=== PATIENT | female | born 1970 | race Caucasian/White ===

== ENCOUNTER → 2017-01-12 | Outpatient (CLI) | payer BC, OTHER ==
[~2017-01-12] MED LIST: ADVIN10/60 INH; ALBUAER2 INH; ALL180 PO; AMOX875T PO; BCPILLS PO; FLUC150T PO; FLUT1INH PO; GFNSR600 PO; GLC/500 PO; GLC500 PO; LCTX PO; LEVO1TAB33 PO; MONT1TAB3 PO; SALI0.6510; SPIR100T PO; TRIA1SPR4 NAE; VNTHFA/IN INH
--- NOTE | 2017-01-12 12:33 | DIAGNOSTIC IMAGING REPORT ---
CHEST 2 VIEWS ROUTINE CLINICAL HISTORY: BRONCHITIS CHEST PRESSURE COMPARISON STUDY: 07/20/2016 FINDINGS: The cardiac and mediastinal contours are normal. There is no evidence of focal pulmonary consolidation. There is no evidence of failure. No pleural effusions are visualized.[ IMPRESSION: No active disease in the chest. Electronically signed by: Benoit Fuchs M.D. 01/12/2017 12:32 PM Dictated Date/Time: 01/12/2017 12:32 PM
== END | disposition home or self-care (01) ==
LOC: C.RADPV 12:05
PROVIDERS: ATTEND Family Medicine
DX: J40 Bronchitis, not specified as acute or chronic (principal)

== ENCOUNTER 2017-01-17 00:10 | Inpatient (IN) | payer BC, OTHER ==
[2017-01-17] VITALS (7 sets, daily range): BP systolic 119–156; BP diastolic 76–93; PULSE 77–92; TEMP 36.6–36.8; O2SAT 95–100; Ht 154.9 cm; Wt 87.0 kg
[~2017-01-17] VITALS: Ht 154.9 cm; Wt 87.0 kg
[~2017-01-17 00:10] MED LIST changes: -ALL180 PO; -AMOX875T PO; -FLUC150T PO; -FLUT1INH PO; -GFNSR600 PO; -GLC/500 PO; -LCTX PO; -MONT1TAB3 PO; -SALI0.6510; -TRIA1SPR4 NAE; -VNTHFA/IN INH
[2017-01-17] MEDS ORDERED: SODIUM CHLORIDE 0.9% 1000ML 1,000 ML IV STA (00:47)
[2017-01-17] MEDS ORDERED: GLC/500 PO (00:48)
[2017-01-17] MEDS ORDERED: MONT1TAB3 PO (00:48)
[2017-01-17] MEDS ORDERED: VNTHFA/IN INH (00:50)
[2017-01-17] MEDS ORDERED: FLUT1INH PO (00:50)
[2017-01-17 00:57] LABS: HEMATOCRIT 42.9 % (37-47); MEAN CELL VOLUME 85.1 fL (80-100); MEAN CORPUSCULAR HEMOGLOBIN 29.8 pg (25-34); MEAN PLATELET VOLUME 10.6 fL (7.4-10.4); PLATELET COUNT 475 K/uL (130-400); RED BLOOD COUNT 5.04 M/uL (4.2-5.4); WHITE BLOOD COUNT 21.35 K/uL (4.8-10.8)
[2017-01-17 01:01] LABS: POINT OF CARE TROPONIN I < 0.030 ng/ml (0-0.045)
[2017-01-17 01:06] LABS: PROTHROMBIN TIME (PATIENT) 10.4 SECONDS (9.0-12.0)
[2017-01-17 01:13] LABS: CALCIUM 9.1 mg/dl (8.5-10.1); CREATININE 1.2 mg/dl (0.60-1.20); MAGNESIUM 1.9 mg/dl (1.8-2.4); POTASSIUM 3.9 mmol/L (3.5-5.1)
[2017-01-17 01:18] LABS: PREG INTERNAL NEGATIVE QC NEG CLEAR BACKGROUND; PREG INTERNAL POSITIVE QC POS CONTROL LINE
[2017-01-17 01:20] LABS: BASO % 0.2 %; BASO ABS # 0.05 K/uL (0-0.2); COMPLETE YES; EOS % 1.1 %; IG% 0.4 %; LYMPH % 28.5 %; LYMPH ABS # 6.09 K/uL (1.2-3.4); MONO % 8.3 %; NEUT % 61.5 %
[2017-01-17 01:21] LABS: URINE APPEARANCE CLEAR (CLEAR); URINE BILIRUBIN NEG (NEG); URINE COLOR YELLOW; URINE NITRITE NEG (NEG); URINE SPECIFIC GRAVITY 1.011 (1.000-1.030); UROBILINOGEN NEG (NEG); ZZUR CULT IF INDIC CLEAN CATCH NO
[2017-01-17 01:24] LABS: ALB/GLOB RATIO 0.8 (0.9-2); THYROID STIMULATING HORMONE 4.56 uIu/ml (0.300-4.500)
[2017-01-17 01:26] LABS: MANUAL MICROSCOPIC REQUIRED? NO; REVIEW REQ? NO
[2017-01-17] MEDS ORDERED: OPTIRAY 320 IV PRN (01:30)
--- NOTE | 2017-01-17 02:36 | EMERGENCY ROOM VISIT NOTE ---
History First contact with patient: 00:32 Chief Complaint: SYNCOPE Stated Complaint: SYNCOPE/FALL Nursing Triage Summary: Patient arrived to ED via ALS transport after having two syncopal episodes at home. Patient experienced a clayton horse when lying down to bed, started to walk to the bathroom and had syncopal episode #1, patient woke and went to get back up, then had second syncopal episode falling from standing position and reports that he thinks the patient was "convulsing". Patient has recent hx of bronchitis with abx treatment. History of Present Illness The patient is a 46 year old female who presents to the Emergency Room via ALS with complaints of 2 syncopal episodes which occurred just prior to arrival. The patient states that she was in bed and had a cramp in her left leg. She states that she stood up to walk to the bathroom to take some potassium and began to get dizzy and lightheaded. She reports that she was told by her that she passed out. He states that she stood up afterward and passed out a second time. He reports that she had some convulsions in her arms at this time. The patient states she has been recently treated for bronchitis. She states that for the past 2-3 weeks, she has had sinus pressure, cough and occasional shortness of breath. She has been on 2 rounds of antibiotics, most recently on Levaquin. She does take control pills but denies any recent long travel. She is not a smoker. She denies any family history of cardiac disease or blood clots. She denies any personal history of cardiac disease or blood clots. She denies any fevers, chest pain, abdominal pain, nausea or vomiting. She rates her overall discomfort a 4/10. She denies any significant complaints at this time. Review of Systems A complete 10 point review of systems was reviewed with the patient with pertinent positives and negatives as per history of present illness. All else were negative. Past Medical/Surgical History Medical Problems: (1) Sinusitis (2) Syncope Social History Smoking Status: Never Smoker Current/Historical Medications Scheduled Control Pills ( Control Pills), 1 TAB PO DAILY Fluticasone Furoate-Vilanterol (Breo Ellipta), 1 INHA PO QAM Levofloxacin (Levaquin), 1 TAB PO DAILY Metformin Hcl (Glucophage), 500 MG PO TID Montelukast Sodium (Singulair), 10 MG PO QPM Spironolactone (Aldactone), 100 MG PO AMPM Scheduled PRN Albuterol Hfa (Ventolin Hfa), 2 PUFFS INH Q6H PRN for SOB/Wheezing Allergies Coded Allergies: Tramadol (Verified Allergy, Severe, GI SYMPTOMS, 01/17/17) Physical Exam Vital Signs Date Time Temp Pulse Resp B/P (MAP) Pulse Ox O2 Delivery O2 Flow Rate FiO2 01/17/17 02:38 148/96 01/17/17 02:37 136/90 01/17/17 02:36 156/94 01/17/17 02:21 176/99 01/17/17 01:31 166/87 01/17/17 01:10 98 20 95 01/17/17 01:01 167/100 01/17/17 00:40 103 18 94 01/17/17 00:31 169/105 01/17/17 00:28 166/115 01/17/17 00:21 97 Room Air 01/17/17 00:17 100 01/17/17 00:17 36.7 101 18 147/97 99 Room Air 01/17/17 00:15 147/97 Physical Exam VITALS: Vitals are noted on the nurse's note and reviewed by myself. Vital signs stable. GENERAL: This is a 46-year-old female, in no acute distress, nondiaphoretic, well-developed well-nourished. SKIN: The skin was without erythema, edema, or bruising. HEAD: Normocephalic atraumatic. EARS: External auditory canals clear, tympanic membranes pearly vasquez without erythema or effusion bilaterally. EYES: Pupils equal round and reactive to light and accommodation. Conjunctivae without injection, sclerae without icterus. Extraocular movements intact. NOSE: Bilateral frontal sinus tenderness. MOUTH: Mucous membranes moist. Tonsils are not enlarged. Pharynx without erythema or exudate. NECK: Supple without nuchal rigidity. No lymphadenopathy. HEART: Regular rate and rhythm without murmurs gallops or rubs. LUNGS: Clear to auscultation bilaterally without wheezes, rales or rhonchi. No retractions or accessory muscle use. NEURO: Patient was alert and oriented to person place and time. Medical Decision & Procedures ER Provider Diagnostic Interpretation: CT HEAD: No evidence of acute intracranial abnormality. CT SINUSES: Paranasal sinus disease involving the maxillary, ethmoid, and sphenoid sinuses with near complete opacification of the right maxillary sinus, air-fluid level in the left maxillary sinus and fluid/debris in the sphenoid sinus. Findings are suspicious for acute sinusitis. Correlate clinically. CTA CHEST: No evidence of pulmonary embolism, thoracic aortic aneurysm or dissection. Focal areas of small calcifications in the bilateral lower lobes, nonspecific, although possibly related to prior infection or inhalation/exposure. Radiologist: Angelita Lara MD Laboratory Results 01/17/17 00:35 Red Blood Count 5.04, Mean Corpuscular Volume 85.1, Mean Corpuscular Hemoglobin 29.8, Mean Corpuscular Hemoglobin Concent 35.0, Mean Platelet Volume 10.6, Neutrophils (%) (Auto) 61.5, Lymphocytes (%) (Auto) 28.5, Monocytes (%) (Auto) 8.3, Eosinophils (%) (Auto) 1.1, Basophils (%) (Auto) 0.2, Neutrophils # (Auto) 13.10, Lymphocytes # (Auto) 6.09, Monocytes # (Auto) 1.78, Eosinophils # (Auto) 0.24, Basophils # (Auto) 0.05 01/17/17 00:35 Test 01/17/17 00:35 01/17/17 00:40 01/17/17 03:13 White Blood Count 21.35 K/uL (4.8-10.8) Red Blood Count 5.04 M/uL (4.2-5.4) Hemoglobin 15.0 g/dL (12.0-16.0) Hematocrit 42.9 % (37-47) Mean Corpuscular Volume 85.1 fL (80-100) Mean Corpuscular Hemoglobin 29.8 pg (25-34) Mean Corpuscular Hemoglobin Concent 35.0 g/dl (32-36) Platelet Count 475 K/uL (130-400) Mean Platelet Volume 10.6 fL (7.4-10.4) Neutrophils (%) (Auto) 61.5 % Lymphocytes (%) (Auto) 28.5 % Monocytes (%) (Auto) 8.3 % Eosinophils (%) (Auto) 1.1 % Basophils (%) (Auto) 0.2 % Neutrophils # (Auto) 13.10 K/uL (1.4-6.5) Lymphocytes # (Auto) 6.09 K/uL (1.2-3.4) Monocytes # (Auto) 1.78 K/uL (0.11-0.59) Eosinophils # (Auto) 0.24 K/uL (0-0.5) Basophils # (Auto) 0.05 K/uL (0-0.2) RDW Standard Deviation 43.1 fL (36.4-46.3) RDW Coefficient of Variation 13.9 % (11.5-14.5) Immature Granulocyte % (Auto) 0.4 % Immature Granulocyte # (Auto) 0.09 K/uL (0.00-0.02) Prothrombin Time 10.4 SECONDS (9.0-12.0) Prothromb Time International Ratio 1.0 (0.9-1.1) Activated Partial Thromboplast Time 25.3 SECONDS (21.0-31.0) Partial Thromboplastin Ratio 1.0 Urine Color YELLOW Urine Appearance CLEAR (CLEAR) Urine pH 5.0 (4.5-7.5) Urine Specific [place] 1.011 (1.000-1.030) Urine Protein NEG (NEG) Urine Glucose (UA) NEG (NEG) Urine Ketones NEG (NEG) Urine Occult Blood NEG (NEG) Urine Nitrite NEG (NEG) Urine Bilirubin NEG (NEG) Urine Urobilinogen NEG (NEG) Urine Leukocyte Esterase NEG (NEG) Anion Gap 11.0 mmol/L (3-11) Est Creatinine Clear Calc Drug Dose 60.1 ml/min Estimated GFR () 63.2 Estimated GFR (Non- 54.5 BUN/Creatinine Ratio 11.0 (10-20) Calcium Level 9.1 mg/dl (8.5-10.1) Magnesium Level 1.9 mg/dl (1.8-2.4) Total Bilirubin 0.4 mg/dl (0.2-1) Aspartate Amino Transf (AST/SGOT) 12 U/L (15-37) Alanine Aminotransferase (ALT/SGPT) 28 U/L (12-78) Alkaline Phosphatase 90 U/L (45-117) Total Protein 8.0 gm/dl (6.4-8.2) Albumin 3.5 gm/dl (3.4-5.0) Globulin 4.5 gm/dl (2.5-4.0) Albumin/Globulin Ratio 0.8 (0.9-2) Thyroid Stimulating Hormone (TSH) 4.560 uIu/ml (0.300-4.500) Human Chorionic Gonadotropin, Qual NEG (NEG) Bedside D-Dimer > 450 ng/mlFEU (0-450) Bedside Troponin I < 0.030 ng/ml (0-0.045) Bedside Lactic Acid Venous 1.48 mmol/L (0.90-1.70) Medications Administered Medications (Trade) Dose Ordered Sig/Javan Route Start Time Stop Time Status Last Admin Dose Admin Sodium Chloride 1,000 ml @ 999 mls/hr Q1H1M STAT IV 01/17/17 00:47 01/17/17 01:47 DC 01/17/17 00:47 999 MLS/HR Piperacillin Sod/ Tazobactam Sod (Zosyn Iv) 4.5 gm NOW STAT IV 01/17/17 03:17 01/17/17 03:19 DC 01/17/17 03:23 4.5 GM ECG Rate (beats per minute): 88 Rhythm: normal sinus Findings: no acute ischemic change, no ectopy Comparison ECG Date: no prior available ED Course The patient was evaluated as above. Labs were drawn and IV access was obtained. Patient was medicated with 1 liter NSS. Patient was reevaluated and states she feels better after receiving fluids. Findings were discussed with the patient. I do feel she needs to be admitted due to failed outpatient therapy. She is agreeable to this. Zosyn was ordered. Case was discussed with the [facility] hospitalist, Dr. Lutz. They agreed to evaluate the patient for admission. Medical Decision Differential diagnosis includes pulmonary embolism, vasovagal syncope, arrhythmia, ACS, dehydration, pneumonia, sinusitis, among others. The patient is a 46-year-old female who presents today complaining of 2 syncopal episodes which occurred tonight. The patient initially stated that she had left leg pain and has been treated for bronchitis as an outpatient, which did raise concern for pulmonary embolism. D-dimer was found to be elevated, however chest CT was negative. Labs did reveal a leukocytosis of 21, 000. The patient was on prednisone recently, but finished this over one week ago. Lactic acid was not significantly elevated. CT scan of the sinuses did show significant sinus disease. The patient has been on both azithromycin and Levaquin as an outpatient, and I do feel she would benefit from IV antibiotics. Blood cultures were drawn and she was given a dose of Zosyn. She will be evaluated by the [facility] hospitalist service in the ED for further evaluation and treatment. The patient's case was reviewed with Dr. Rajput, ED attending physician, who agreed with my assessment and treatment plan. Medication reconciliation: I attest that I have personally reviewed the patient 's current medication list. Blood pressure screening: Patient was found to have an elevated blood pressure and was referred to the hospitalist service for further treatment. Impression Primary Impression: Sinusitis Additional Impressions: Syncope Failure of outpatient treatment Departure Information Referrals Pradeep Silva M.D. (PCP) Patient Instructions [facility] Problem Qualifiers Primary Impression: Sinusitis Sinusitis location: pansinusitis Chronicity: acute Recurrence: non- recurrent Qualified Codes: J01.40 - Acute pansinusitis, unspecified Additional Impressions: Syncope Syncope type: unspecified Qualified Codes: R55 - Syncope and collapse
[2017-01-17] MEDS ORDERED: PIPERACILLIN/TAZOBACTAM 4.5 GM/100ML D5W IV STA (03:17)
[2017-01-17] MEDS ORDERED: ONDANSETRON INJ 2 MG/ML 2 ML VIAL IV PRN (04:00)
[2017-01-17] MEDS ORDERED: MAGNESIUM HYDROXIDE SUSP 30 ML UDC PO PRN (04:00)
[2017-01-17] MEDS ORDERED: ALBUTEROL HFA 8 GM INHALER INH PRN (04:00)
[2017-01-17] MEDS ORDERED: POLYETHYLENE (MIRALAX) 17 GM PACK PO PRN (04:00)
[2017-01-17] MEDS ORDERED: ALUMINUM/MAGNESIUM/SIMETH (MAALOX MAX) 30 ML UDC PO PRN (04:00)
[2017-01-17] MEDS ORDERED: ZOLPIDEM TARTRATE 5 MG TAB PO PRN (04:00)
--- NOTE | 2017-01-17 04:33 | History and Physical ---
History & Physical Date & Time of Service: Jan 17, 2017 at 04:12 Chief Complaint: Syncope/Fall Primary Care Physician: Pradeep Silva M.D. History of Present Illness Source: patient 46 y/o F Hx PCOS, asthma. Pt has had sinusitis for the past 2 weeks and has had a course of Zithromax and a steroid taper followed by 5 days of Levaquin. She does not feel her symptoms have improved despite this. She got out of bed today to get some medications and suffered a syncopal episode with little warning. She does not recall any palpitations, CP or a ZELAYA prior to LOC. Her was helping her get up when she briefly lost consciousness again. She had collapse on the floor and was noted to be shaking her upper extremities. She did not bite her tongue or become incontinent. She did not suffer any head trauma. She nimisha lightheaded when she regained consciousness but does not describe a post-ictal phase. She denies recent fevers or decreased fluid intake. Initial labs in the ER reveal Leukocytosis. A sinus CT shown persistent sphenoid and maxillary sinusitis. 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 Family History Mother with PCOS, DM Social History Smoking Status: Never Smoker Alcohol Use: socially Immunizations History of Influenza Vaccine: No History of Tetanus Vaccine?: Yes Tetanus Immunization Date: May 31, 2005 History of Pneumococcal: No History of Hepatitis B Vaccine: Unknown Multi-Drug Resistant Organisms History of MDRO: No Allergies Coded Allergies: Tramadol (Verified Allergy, Severe, GI SYMPTOMS, 01/17/17) Home Medications Scheduled Control Pills ( Control Pills), 1 TAB PO DAILY Fluticasone Furoate-Vilanterol (Breo Ellipta), 1 INHA PO QAM Levofloxacin (Levaquin), 1 TAB PO DAILY Metformin Hcl (Glucophage), 500 MG PO TID Montelukast Sodium (Singulair), 10 MG PO QPM Spironolactone (Aldactone), 100 MG PO AMPM Scheduled PRN Albuterol Hfa (Ventolin Hfa), 2 PUFFS INH Q6H PRN for SOB/Wheezing Review of Systems Constitutional: No fever, No chills, No sweats Eyes: No worsening of vision ENT: + nasal symptoms, No hearing loss, No unusual epistaxis Respiratory: No cough, No sputum, No wheezing Cardiovascular: No chest pain, No orthopnea, No PND Abdomen: No pain, No nausea, No vomiting Musculoskeletal: No joint pain, No muscle pain Genitourinary - Female: No dysuria, No urinary frequency, No urinary urgency Neurologic: + problem reported (LOC as above), No memory loss, No paralysis, No weakness Psychiatric: No depression symptoms Endocrine: No fatigue Hematologic / Lymphatic: No abnormal bleeding/bruising Integumentary: No rash Allergic / Immunologic: No environmental allergies Physical Exam Vital Signs Date Time Temp Pulse Resp B/P (MAP) Pulse Ox O2 Delivery O2 Flow Rate FiO2 01/17/17 02:38 148/96 01/17/17 02:37 136/90 01/17/17 02:36 156/94 01/17/17 02:21 176/99 01/17/17 01:31 166/87 01/17/17 01:10 98 20 95 01/17/17 01:01 167/100 01/17/17 00:40 103 18 94 01/17/17 00:31 169/105 01/17/17 00:28 166/115 01/17/17 00:21 97 Room Air 01/17/17 00:17 100 01/17/17 00:17 36.7 101 18 147/97 99 Room Air 01/17/17 00:15 147/97 General Appearance: WD/WN, no apparent distress Head: normocephalic, atraumatic Eyes: normal inspection, EOMI ENT: normal ENT inspection, hearing grossly normal, pharynx normal Neck: supple, no JVD Respiratory/Chest: chest non-tender, lungs clear, normal breath sounds Cardiovascular: regular rate, rhythm, no edema, no gallop Abdomen/GI: normal bowel sounds, non tender, soft Back: normal inspection, no CVA tenderness, no muscle spasm Extremities/Musculoskelatal: normal inspection, no calf tenderness, no pedal edema, normal range of motion Neurologic/Psych: steel chipper II-XII nml as tested, no motor/sensory deficits, alert, normal mood/affect, normal reflexes, oriented x 3 Skin: normal color, warm/dry, no rash Diagnostics Laboratory Results Results Past 24 Hours Test 01/17/17 00:35 01/17/17 00:40 01/17/17 03:13 Range/Units White Blood Count 21.35 4.8-10.8 K/uL Red Blood Count 5.04 4.2-5.4 M/uL Hemoglobin 15.0 12.0-16.0 g/dL Hematocrit 42.9 37-47 % Mean Corpuscular Volume 85.1 80-100 fL Mean Corpuscular Hemoglobin 29.8 25-34 pg Mean Corpuscular Hemoglobin Concent 35.0 32-36 g/dl Platelet Count 475 130-400 K/uL Mean Platelet Volume 10.6 7.4-10.4 fL Neutrophils (%) (Auto) 61.5 % Lymphocytes (%) (Auto) 28.5 % Monocytes (%) (Auto) 8.3 % Eosinophils (%) (Auto) 1.1 % Basophils (%) (Auto) 0.2 % Neutrophils # (Auto) 13.10 1.4-6.5 K/uL Lymphocytes # (Auto) 6.09 1.2-3.4 K/uL Monocytes # (Auto) 1.78 0.11-0.59 K/uL Eosinophils # (Auto) 0.24 0-0.5 K/uL Basophils # (Auto) 0.05 0-0.2 K/uL RDW Standard Deviation 43.1 36.4-46.3 fL RDW Coefficient of Variation 13.9 11.5-14.5 % Immature Granulocyte % (Auto) 0.4 % Immature Granulocyte # (Auto) 0.09 0.00-0.02 K/uL Prothrombin Time 10.4 9.0-12.0 SECONDS Prothromb Time International Ratio 1.0 0.9-1.1 Activated Partial Thromboplast Time 25.3 21.0-31.0 SECONDS Partial Thromboplastin Ratio 1.0 Urine Color YELLOW Urine Appearance CLEAR CLEAR Urine pH 5.0 4.5-7.5 Urine Specific [place] 1.011 1.000-1.030 Urine Protein NEG NEG Urine Glucose (UA) NEG NEG Urine Ketones NEG NEG Urine Occult Blood NEG NEG Urine Nitrite NEG NEG Urine Bilirubin NEG NEG Urine Urobilinogen NEG NEG Urine Leukocyte Esterase NEG NEG Sodium Level 135 136-145 mmol/L Potassium Level 3.9 3.5-5.1 mmol/L Chloride Level 99 98-107 mmol/L Carbon Dioxide Level 25 21-32 mmol/L Anion Gap 11.0 3-11 mmol/L Blood Urea Nitrogen 13 7-18 mg/dl Creatinine 1.20 0.60-1.20 mg/dl Est Creatinine Clear Calc Drug Dose 60.1 ml/min Estimated GFR () 63.2 Estimated GFR (Non- 54.5 BUN/Creatinine Ratio 11.0 10-20 Random Glucose 122 70-99 mg/dl Calcium Level 9.1 8.5-10.1 mg/dl Magnesium Level 1.9 1.8-2.4 mg/dl Total Bilirubin 0.4 0.2-1 mg/dl Aspartate Amino Transf (AST/SGOT) 12 15-37 U/L Alanine Aminotransferase (ALT/SGPT) 28 12-78 U/L Alkaline Phosphatase 90 45-117 U/L Total Protein 8.0 6.4-8.2 gm/dl Albumin 3.5 3.4-5.0 gm/dl Globulin 4.5 2.5-4.0 gm/dl Albumin/Globulin Ratio 0.8 0.9-2 Thyroid Stimulating Hormone (TSH) 4.560 0.300-4.500 uIu/ml Human Chorionic Gonadotropin, Qual NEG NEG Bedside D-Dimer > 450 0-450 ng/mlFEU Bedside Troponin I < 0.030 0-0.045 ng/ml Bedside Lactic Acid Venous 1.48 0.90-1.70 mmol/L Microbiology Results 01/17/17 Blood Culture, Received Pending 01/17/17 Blood Culture, Received Pending Diagnostic Radiology CT head: maxillary and sphenoid sinusitis EKG NSR Impression Assessment and Plan 46 y/o F Hx PCOS, asthma. Pt has had sinusitis for the past 2 weeks and has had a course of Zithromax and a steroid taper followed by 5 days of Levaquin. She does not feel her symptoms have improved despite this. She got out of bed today to get some medications and suffered a syncopal episode with little warning. She does not recall any palpitations, CP or a ZELAYA prior to LOC. Her was helping her get up when she briefly lost consciousness again. She had collapse on the floor and was noted to be shaking her upper extremities. She does not describe a post-ictal phase. She denies recent fevers or decreased fluid intake. Initial labs in the ER reveal Leukocytosis. A sinus CT shown persistent sphenoid and maxillary sinusitis. 1) Persistent sinusitis - will obtain MRSA culture and consult ENT. Pt placed on Unasyn in interim. 2) Syncope - we will monitor on telemetry - likely due to orthostasis as it occurred when she got out of bed - possibly vasovagal - no CV risk factors are present. 3) PCOS - treats with control, Aldactone, Metformin - we have held all 3 and will provide IVF overnight 4) Asthma - no current exacerbation - cont home inhalers. Full code - Heparin prophylaxis Total time for this admit including review of labs, imaging, EKG, records - discussion with pt and ER attending - 33 min Level of Care Telemetry Resuscitation Status FULL RESUSCITATION VTE Prophylaxis VTE Risk Assessment Done? Y/N: Yes Risk Level: Low Given or contraindicated: Unfractionated heparin SQ
[2017-01-17] MEDS: HEPARIN SOD 5000 UNIT/0.5 ML CARP SQ SCH ×3 (06:00→21:04)
[2017-01-17] MEDS: AMPICILLIN/SULBACTAM SOD INJ 3,000 MG in SODIUM CHLORIDE 0.9% 100ML 100 ML IV SCH ×3 (06:07→17:32)
[2017-01-17] MEDS: NSS + 20MEQ KCL 1000ML 1,000 ML IV SCH ×2 (06:08→15:21)
--- NOTE | 2017-01-17 06:42 | DIAGNOSTIC IMAGING REPORT ---
HEAD CT NONCONTRAST CT DOSE: HISTORY: Pain. Change in mental status. head pain/pressure, syncope TECHNIQUE: Multiaxial CT images of the head were performed without the use of intravenous contrast. Comparison: None. Findings: Diffuse mucosal thickening of all major sinuses. The calvarium and skull base are intact. The ventricles and sulci are within normal limits. There is no mass, hematoma, midline shift, or acute infarct. Impression: Negative unenhanced CT scan of the brain. Diffuse sinusitis. Electronically signed by: Jame Braun M.D. 01/17/2017 6:40 AM Dictated Date/Time: 01/17/2017 6:39 AM
--- NOTE | 2017-01-17 07:32 | DIAGNOSTIC IMAGING REPORT ---
CT SCAN OF THE PARANASAL SINUSES CLINICAL HISTORY: Sinus pain and pressure. COMPARISON STUDY: CT scan of the brain performed concurrently on 01/17/2017. TECHNIQUE: High-resolution CT scan of the paranasal sinuses is performed. Images are reviewed in the axial, sagittal, and coronal planes. IV contrast was not administered for this examination. FINDINGS: Maxillary antra: Subtotally opacified bilaterally. An air-fluid level is seen on the left. Anterior ethmoid sinuses: Subtotally opacified bilaterally, right greater than left. Posterior ethmoid sinuses: Moderate mucosal thickening seen on the right. Clear on the left. Sphenoid sinuses: There is moderate mucosal thickening within air-fluid level in the right. Trace mucosal thickening is seen in the left. Frontal sinuses: Trace mucosal thickening is seen bilaterally. Ostiomeatal complexes: Occluded bilaterally. Frontoethmoidal and sphenoethmoidal recesses: The left sphenoethmoidal recess is patent. The right skin with lateral recess is almost completely occluded. The frontoethmoidal recesses are significantly narrowed bilaterally secondary to mucosal thickening. Carotid arteries: The carotid arteries are covered and without septal attachments. Ethmoid roofs: There is slightly asymmetric elevation of the right ethmoid roof as compared to the left. Nasal turbinates: Normal in appearance. Nasal septum: There is rightward deviation of the bony nasal septum. Optic nerves: Covered. Orbits: The bony orbits are intact. Orbital contents are normal in appearance. Calvarium: The imaged calvarium is normal in appearance. Mastoid air cells: Well pneumatized. Brain parenchyma: Partially visualized brain parenchyma is within normal limits. IMPRESSION: Maxillary, ethmoid, and sphenoid sinus disease as above. Electronically signed by: Urbano Roldan M.D. 01/17/2017 7:30 AM Dictated Date/Time: 01/17/2017 7:26 AM
--- NOTE | 2017-01-17 07:45 | DIAGNOSTIC IMAGING REPORT ---
CT ANGIOGRAM OF THE CHEST CLINICAL HISTORY: Atypical chest pain. COMPARISON STUDY: Chest x-ray dated 01/12/2017. TECHNIQUE: Following the IV administration of 81 cc of Optiray 320, CT angiogram of the chest was performed from the upper abdomen to the thoracic inlet utilizing the pulmonary embolus protocol. Images are reviewed in the axial, sagittal, and coronal planes. 3-D MIPS images are created and assessed. There was an IV malfunction during the examination. IV contrast was then administered without complication. CT DOSE: 1537.22 mGy.cm FINDINGS: Thyroid: Imaged portions of the thyroid gland are normal in size and attenuation. Thoracic aorta: The thoracic aorta is normal in caliber and demonstrates standard 3-vessel arch anatomy. No dissection is seen. Pulmonary vasculature: The pulmonary trunk is normal in caliber. There are no filling defects identified in main, lobar, or segmental pulmonary branches to suggest pulmonary embolus. Heart: The heart is normal in size and configuration, and without pericardial effusion. Lungs and pleural spaces: Numerous calcific granulomas are present both lung bases. There is no airspace consolidation or pleural effusion. The trachea and central airways are clear. Mediastinum: There is no mediastinal lymphadenopathy. Evonne: Clear. Axillae: There is no axillary lymphadenopathy. Upper abdomen: Partially visualized upper abdominal viscera is within normal limits. Skeletal structures: No lytic or blastic bony lesions are seen. IMPRESSION: 1. There is no evidence of pulmonary embolus in the main, lobar, or segmental pulmonary arteries. 2. There is no airspace consolidation or pleural effusion. Electronically signed by: Urbano Roldan M.D. 01/17/2017 7:44 AM Dictated Date/Time: 01/17/2017 7:41 AM
[2017-01-17] MEDS: METFORMIN HCL 500 MG TAB PO SCH ×3 (07:53→17:32)
[2017-01-17] MEDS ORDERED: NURSING DECISION MEDICATION ORDER SCH (08:00)
[2017-01-17] MEDS ORDERED: SODIUM CHLORIDE 0.65% NA SOLN 45 ML (OCEAN) PRN ×2 (08:15)
--- NOTE | 2017-01-17 08:21 | ENT CONSULTATION ---
DATE OF CONSULTATION: 01/17/2017 DIAGNOSIS: Acute sinusitis. HISTORY OF PRESENT ILLNESS: A 46-year-old lady with asthma and sinusitis for 2 weeks, treated with Zithromax, Levaquin and steroids with continuing increase in facial pain, but the main reason she is being admitted is for evaluation for loss of consciousness. PAST MEDICAL HISTORY: Positive for asthma, and PCOS. SOCIAL HISTORY: Nonsmoker. ALLERGIES: TO TRAMADOL. MEDICATIONS: Metformin, Aldactone and Levaquin. REVIEW OF SYSTEMS: Otherwise, negative. PHYSICAL EXAMINATION: GENERAL: WNWD, female, in no acute distress. She states that her facial pain has diminished with the IV Unasyn. HEAD: Normocephalic. EYES: Normal. EARS: Tympanic membranes intact. NOSE: Nasal passages show swollen turbinates. THROAT: Oropharynx normal. NECK: Supple, no adenopathy. IMAGING DATA: The CT scan which were reviewed showed opacified maxillary and ethmoid and sphenoid sinuses. IMPRESSION: Acute sinusitis, responding to Unasyn. RECOMMENDATIONS: The patient will be started on saline nose spray. She is improving on IV antibiotics and does not need any surgical intervention unless the facial pain becomes worse again. I can follow her in my office as needed.
[2017-01-17] MEDS: TRIAMCINOLONE ACET NASAL SPRAY 10.8ML BTL NAE SCH (09:38)
[2017-01-17] MEDS: FEXOFENADINE HCL 180 MG TAB PO SCH (09:38)
[2017-01-17] MEDS: GUAIFENESIN 600 MG TABCR PO SCH ×2 (09:38→21:04)
[2017-01-17] MEDS: ACETAMINOPHEN 325 MG TAB PO PRN (15:23)
[2017-01-17] MEDS ORDERED: MONTELUKAST SOD 10 MG TAB PO SCH (21:00)
[2017-01-17] MEDS: LACTOBACILLUS ACIDOPHILUS (FLORANEX) TAB PO SCH (21:03)
--- NOTE | 2017-01-17 21:11 | Progress Note ---
Progress Note Date of Service Jan 17, 2017. Progress Note 2100 - time S: Pt still with facial pain/headache but overall feels somewhat better. Mild cough but no wheezing. No fever. O: VSS, afebrile gen- nad face- left maxillary area visibly swollen/tender heart- RRR lungs- CTA b/l abd- soft, NT, ND ext- no edema CT head & sinuses - reviewed osteomeatal complexes obstructed b/l b/l sinusitis in multiple areas A/P: 1. acute sinusitis - unresponsive to z-pack and levaquin as outpatient. Agree w/ unasyn; hopefully transition to course of po augmentin tomorrow. Add mucinex, meredith, nasal saline spray, and nasacort. Appreciate ENT eval. Could consider repeat prednisone course if necessary. 2. asthma - w/o exacerbation. 3. FEN - cont fluids, can stop such in am. Repeat labs oma. Damion MITCHELL MD
[2017-01-18] MEDS: AMPICILLIN/SULBACTAM SOD INJ 3,000 MG in SODIUM CHLORIDE 0.9% 100ML 100 ML IV SCH ×2 (00:11→06:01)
[2017-01-18] MEDS: NSS + 20MEQ KCL 1000ML 1,000 ML IV SCH (01:43)
[2017-01-18 04:00] VITALS: BP 125/80; PULSE 62; TEMP 36.6; O2SAT 96
[2017-01-18] MEDS: HEPARIN SOD 5000 UNIT/0.5 ML CARP SQ SCH (06:00)
[2017-01-18] MEDS: ACETAMINOPHEN 325 MG TAB PO PRN (06:07)
[2017-01-18 07:13] VITALS: BP 139/92; PULSE 77; TEMP 36.5; O2SAT 98
[2017-01-18] MEDS: METFORMIN HCL 500 MG TAB PO SCH (07:48)
[2017-01-18] MEDS: LACTOBACILLUS ACIDOPHILUS (FLORANEX) TAB PO SCH (07:48)
[2017-01-18] MEDS: TRIAMCINOLONE ACET NASAL SPRAY 10.8ML BTL NAE SCH (07:49)
[2017-01-18] MEDS: FEXOFENADINE HCL 180 MG TAB PO SCH (07:49)
[2017-01-18] MEDS: GUAIFENESIN 600 MG TABCR PO SCH (07:49)
[2017-01-18] MEDS ORDERED: FLUTICASONE FUROATE-VILANTEROL 30 PUFFS/INHALER INH INH SCH (09:00)
[2017-01-18 09:18] LABS: HEMATOCRIT 41.6 % (37-47); MEAN CELL VOLUME 87.9 fL (80-100); MEAN CORPUSCULAR HEMOGLOBIN 27.9 pg (25-34); MEAN CORPUSCULAR HGB CONC 31.7 g/dl (32-36); MEAN PLATELET VOLUME 10.3 fL (7.4-10.4); PLATELET COUNT 441 K/uL (130-400); RED BLOOD COUNT 4.73 M/uL (4.2-5.4); WHITE BLOOD COUNT 12.24 K/uL (4.8-10.8)
[2017-01-18 09:58] LABS: BUN/CREATININE RATIO 9.8 (10-20); CREATININE 0.93 mg/dl (0.60-1.20); POTASSIUM 3.8 mmol/L (3.5-5.1)
[2017-01-18] MEDS ORDERED: TRIA1SPR4 NAE (10:03)
[2017-01-18] MEDS ORDERED: GFNSR600 PO (10:03)
[2017-01-18] MEDS ORDERED: SALI0.6510 (10:03)
[2017-01-18] MEDS ORDERED: LCTX PO (10:03)
[2017-01-18] MEDS ORDERED: ALL180 PO (10:03)
[2017-01-18] MEDS ORDERED: AMOX875T PO (10:03)
--- NOTE | 2017-01-18 10:19 | Discharge Instructions ---
Discharge Instructions Date of Service Jan 18, 2017. Admission Reason for Admission: Sinus Infection; Passing out Spell Discharge Discharge Diagnosis / Problem: 1. sinus infection - improving. 2. passing out spell - likely vasovagal. Discharge Goals Goal(s): Learn about illness, Diagnostic testing, Therapeutic intervention Activity Recommendations Activity Limitations: resume your previous activity (as tolerated ) . Instructions / Follow-Up Instructions / Follow-Up From Dr. Gilliland - 1. Sinus infection - * please start augmentin 875mg twice daily for 12 more days. Start this TONIGHT. Take with food to minimize stomach upset. Prescription sent to [facility]. * augmentin can cause diarrhea. Please take lactinex (probiotics) three times a day for the next 12 days to help prevent diarrhea. Prescription sent to [facility]. * augmentin can also render your control pills ineffective. Please use a second form of control for the next month. 2. Sinus symptoms - * you may use some or all of the following to help with your sinus symptoms - * "Netti Pot" or the "Netti bottle" or, more simply, a nasal saline spray * meredith (fexofenadine) 180mg once daily * nasacort nasal spray - 2 sprays each nostril once daily * mucinex 600-1200mg up to twice daily; this helps cough as well as nasal/ sinus congestion * all 4 of these products can be found [id number] * you may want to consider staying on the meredith and nasacort for the summer if you have underlying allergies 3. Your episode of passing out was likely a "vasovagal" episode. This is the most common cause of fainting. You were likely mildly dehydrated in the setting of your severe sinus infection. Even mild dehydration can precipitate a vasovagal episode. Your heart monitoring was normal while here. 4. Drink plenty of fluids over the next week. 5. Return to [facility] if: * you develop fever over 100.5 degrees * you have worsening headache, ear pain, etc * you have worsening cough or shortness of breath from your asthma * you develop severe diarrhea, especially if mixed with mucous or blood 6. Follow-up - * please see Dr. Lord early this coming week * you can see Dr. Montanez, ENT, on an as needed basis * see Dr. Neumann as scheduled 7. If you develop symptoms/signs of a vaginal yeast infection you take take diflucan 150mg by mouth for 1 dose. Prescription provided. Current Hospital Diet Patient's current hospital diet: Regular Diet Discharge Diet Recommended Diet: Regular Diet Procedures Procedures Performed: 1. CAT scan of lungs - normal; no pneumonia or blood clots. 2. CAT scan of head - normal except for sinus infection. 3. CAT scan of sinuses - multiple sinuses with infection. Pending Studies Studies pending at discharge: no Medical Emergencies . Who to Call and When: Medical Emergencies: If at any time you feel your situation is an emergency, please call 911 immediately. . Non-Emergent Contact Non-Emergency issues call your: Primary Care Provider Call Non-Emergent contact if: temperature is above 100.5, your pain is not controlled, your pain is worsening, you have any medication questions . . "Provider Documentation" section prepared by Jeet Gilliland. . VTE Core Measure Inpt VTE Proph given/why not?: Unfractionated heparin SQ
[2017-01-18] MEDS ORDERED: FLUC150T PO (10:20)
[2017-01-18 10:24] VITALS: BP 139/92; PULSE 77; TEMP 36.5; O2SAT 98
[2017-01-18 11:00] LABS: BASO ABS # 0.11 K/uL (0-0.2); BASOPHIL % 0.9 %; COMPLETE YES; EOSINOPHIL % 0.9 %; LYMPH ABS # 5.53 K/uL (1.2-3.4); LYMPHOCYTE % 45.2 %; NEUTROPHILS % 47.8 %
--- NOTE | 2017-01-23 22:57 | Discharge Summary ---
Discharge Summary Date of Service Jan 23, 2017. Discharge Summary Admission Date: Jan 17, 2017 at 04:06 Discharge Date: Jan 18, 2017 Discharge Disposition: Home Principal Diagnosis: syncope, likely vasovagal in etiology Problems/Secondary Diagnoses: 1. acute sinusitis 2. abnormal TSH 3. PCOS 4. asthma 5. abnormal CBC Immunizations: Have You Had Influenza Vaccine: No History of Tetanus Vaccine?: Yes Tetanus Immunization Date: May 31, 2005 History of Pneumococcal: No History of Hepatitis B Vaccine: Unknown Procedures: 1. CT sinuses - FINDINGS: Maxillary antra: Subtotally opacified bilaterally. An air-fluid level is seen on the left. Anterior ethmoid sinuses: Subtotally opacified bilaterally, right greater than left. Posterior ethmoid sinuses: Moderate mucosal thickening seen on the right. Clear on the left. Sphenoid sinuses: There is moderate mucosal thickening within air-fluid level in the right. Trace mucosal thickening is seen in the left. Frontal sinuses: Trace mucosal thickening is seen bilaterally. Ostiomeatal complexes: Occluded bilaterally. Frontoethmoidal and sphenoethmoidal recesses: The left sphenoethmoidal recess is patent. The right skin with lateral recess is almost completely occluded. The frontoethmoidal recesses are significantly narrowed bilaterally secondary to mucosal thickening. Carotid arteries: The carotid arteries are covered and without septal attachments. Ethmoid roofs: There is slightly asymmetric elevation of the right ethmoid roof as compared to the left. Nasal turbinates: Normal in appearance. Nasal septum: There is rightward deviation of the bony nasal septum. Optic nerves: Covered. Orbits: The bony orbits are intact. Orbital contents are normal in appearance. Calvarium: The imaged calvarium is normal in appearance. Mastoid air cells: Well pneumatized. Brain parenchyma: Partially visualized brain parenchyma is within normal limits. 2. CTA chest - negative for PE or pneumonia. 3. CT head - normal except for sinus disease. Consultations: ENT - Debra Montanez MD Medication Reconciliation New Medications: Amoxicillin & Pot Clavulanate (Augmentin 875-125 mg) 1 Tab Tab 875 MG PO BID for 12 Days, #24 TAB 0 Refills Fluconazole (Diflucan) 150 Mg Tab 150 MG PO once PRN for yeast infection, #1 TAB 0 Refills Fexofenadine HCl (Fexofenadine HCl) 180 Mg Tab 180 MG PO QAM, #30 TAB 11 Refills for sinus issues Guaifenesin Ext Rel (Mucinex Ext Rel) 600 Mg Tabcr 1200 MG PO Q12 PRN for cough/congestion, #60 5 Refills Lactobacillus Acidophilus (Floranex) 1 Tab Tab 4 TAB PO TIDM for 12 Days, #144 TAB 0 Refills Saline ([place] Nasal Castine) 0.65 % Spr 1 SPRAYS NA PRN PRN for nasal congestion, #1 0 Refills Triamcinolone Acetonide (Nasal (Nasacort Allergy 24Hr) 55 Mcg/Act Spr 2 SPRAYS INDIRA DAILY, #1 11 Refills for sinus/nasal congestion Continued Medications: Albuterol Hfa (Ventolin Hfa) 200 Puffs/20204 Mcg Aers 2 PUFFS INH Q6H PRN for SOB/Wheezing Control Pills ( Control Pills) Tab 1 TAB PO DAILY, 0 Refills Fluticasone Furoate-Vilanterol (Breo Ellipta) 1 Inh Inh 1 INHA PO QAM Metformin Hcl (Glucophage) 500 Mg Tab 500 MG PO TID Montelukast Sodium (Singulair) 10 Mg Tab 10 MG PO QPM Spironolactone (Aldactone) 100 Mg Tab 100 MG PO AMPM, 0 Refills Discontinued Medications: Levofloxacin (Levaquin) Unknown Strength Tab 1 TAB PO DAILY for 10 Days Discharge Exam Physical Exam: General Appearance: no apparent distress ENT: pharynx normal, + nasal congestion, + nasal drainage, + pertinent finding (left maxillary sinus swollen and modestly tender) Neck: no JVD Respiratory/Chest: lungs clear, no respiratory distress, no accessory muscle use Cardiovascular: regular rate, rhythm, no gallop, no murmur, normal peripheral pulses Abdomen / GI: normal bowel sounds, non tender, soft, no organomegaly Extremities: no pedal edema Neurologic/Psychiatric: alert, oriented x 3 Hospital Course HISTORY OF PRESENT ILLNESS: 46yo female with history of PCOS and asthma who presented after having had a brief syncopal episode. The patient reported she had had sinusitis for the past 2 weeks and took a course of Zithromax and a steroid taper followed by 5 days of Levaquin. Her symptoms did not improve despite this. She got out of bed to get some medications and suffered a syncopal episode with little warning. She didn't recall any palpitations, CP or a headache prior to loss of consciousness. Her was helping her get up when she briefly lost consciousness again. She had collapse on the floor and was noted to be shaking her upper extremities. She did not bite her tongue or become incontinent. She did not suffer any head trauma. She felt lightheaded when she regained consciousness which was rather quickly. She denied any recent fevers or decreased fluid intake. Initial labs in the ER revealed Leukocytosis. A sinus CT showed persistent sphenoid and maxillary sinusitis. HOSPITAL COURSE: The patient was placed on IV unasyn and given IV hydration for her significant acute sinusitis. Blood cultures remained negative while hospitalized. Telemetry was normal as were vitals. She had no further syncope or presyncope. Her leukocytosis began to resolve prior to discharge. She was seen in consult by ENT who recommended nonoperative management. At discharge she will complete a course of augmentin. Symptomatic care of her sinuses was discussed in detail. Her syncope was felt to be due to vasovagal etiology. The arm shaking was likely myoclonic jerking. On day of discharge there were a small amount of blast cells seen on differential. CBC on the day prior did not demonstrate blast cells. The CBC otherwise did not show features of an acute leukemia. Although this was felt to be due to her acute illness, as a precautionary measure the patient will repeat a CBC with differential within 48 hours of discharge. She will also complete a BMP to ensure her creatinine remained stable following IV contrast administration. Lastly, a TSH checked during this stay was minimally elevated. She was advised to have this repeated in 4-6 weeks as an outpatient. Total Time Spent: Greater than 30 minutes This includes examination of the patient, discharge planning, medication reconciliation, and communication with other providers. Discharge Instructions Please refer to the electronic Patient Visit Report (Discharge Instructions) for additional information. Follow-Up 1. patient will return to [facility] within 48 hours for repeat CBC with diff and BMP 2. see PCP within 1 week of discharge Additional Copies To Debra Montanez M.D.; Pradeep Silva M.D.
== END 2017-01-18 10:53 | disposition home or self-care (01) | DRG 153 ==
LOC: EDBD 00:10 → C.EDA 00:11 → C.MED 04:06 → ENRESERV 04:29 → CANRESERV 04:29 → ENRESERV 05:08
PROVIDERS: ADMIT Internal Medicine; ATTEND Internal Medicine
DX: J01.90 Acute sinusitis, unspecified (principal); R55 Syncope and collapse; E28.2 Polycystic ovarian syndrome; J45.909 Unspecified asthma, uncomplicated; Z79.2 Long term (current) use of antibiotics; Z79.3 Long term (current) use of hormonal contraceptives; Z79.84 Long term (current) use of oral hypoglycemic drugs; Z79.899 Other long term (current) drug therapy

== ENCOUNTER → 2017-01-20 | Outpatient (CLI) | payer BC, OTHER ==
[~2017-01-20] MED LIST changes: -ADVIN10/60 INH; -ALBUAER2 INH; +ALL180 PO; +AMOX875T PO; +FLUC150T PO; +FLUT1INH PO; +GFNSR600 PO; +GLC/500 PO; -GLC500 PO; +LCTX PO; -LEVO1TAB33 PO; +MONT1TAB3 PO; +SALI0.6510; +TRIA1SPR4 NAE; +VNTHFA/IN INH
[2017-01-20 12:28] LABS: BASO % 0.6 %; BASO ABS # 0.08 K/uL (0-0.2); COMPLETE YES; EOS % 1.5 %; HEMATOCRIT 44.6 % (37-47); IG% 0.2 %; LYMPH % 21.7 %; LYMPH ABS # 2.87 K/uL (1.2-3.4); MEAN CELL VOLUME 85.8 fL (80-100); MEAN CORPUSCULAR HEMOGLOBIN 27.1 pg (25-34); MEAN CORPUSCULAR HGB CONC 31.6 g/dl (32-36); MEAN PLATELET VOLUME 10.5 fL (7.4-10.4); MONO % 7.5 %; NEUT % 68.5 %; PLATELET COUNT 494 K/uL (130-400); WHITE BLOOD COUNT 13.25 K/uL (4.8-10.8)
[2017-01-20 12:43] LABS: BLOOD UREA NITROGEN 10 mg/dl (7-18); BUN/CREATININE RATIO 10.2 (10-20); CALCIUM 9.2 mg/dl (8.5-10.1); CARBON DIOXIDE 24 mmol/L (21-32); CHLORIDE 106 mmol/L (98-107); CREATININE 0.94 mg/dl (0.60-1.20); GLUCOSE 106 mg/dl (70-99); POTASSIUM 3.8 mmol/L (3.5-5.1); SODIUM 140 mmol/L (136-145)
== END | disposition home or self-care (01) ==
LOC: C.LAB 11:33
PROVIDERS: ATTEND Internal Medicine
DX: E11.9 Type 2 diabetes mellitus without complications (principal)

== ENCOUNTER → 2017-03-16 | Outpatient (CLI) | payer BC, OTHER ==
[2017-03-16 12:17] LABS: BASO % 0.5 %; BASO ABS # 0.05 K/uL (0-0.2); COMPLETE YES; EOS % 2.6 %; HEMATOCRIT 40.9 % (37-47); IG% 0.1 %; LYMPH % 36.4 %; LYMPH ABS # 3.41 K/uL (1.2-3.4); MEAN CELL VOLUME 87.4 fL (80-100); MEAN CORPUSCULAR HEMOGLOBIN 28.2 pg (25-34); MEAN CORPUSCULAR HGB CONC 32.3 g/dl (32-36); MEAN PLATELET VOLUME 10.5 fL (7.4-10.4); MONO % 6.4 %; PLATELET COUNT 493 K/uL (130-400); RED BLOOD COUNT 4.68 M/uL (4.2-5.4); WHITE BLOOD COUNT 9.36 K/uL (4.8-10.8)
[2017-03-16 12:40] LABS: BLOOD UREA NITROGEN 9 mg/dl (7-18); BUN/CREATININE RATIO 10.5 (10-20); CALCIUM 8.9 mg/dl (8.5-10.1); CARBON DIOXIDE 26 mmol/L (21-32); CHLORIDE 106 mmol/L (98-107); CHOLESTEROL 180 mg/dl (0-200); CREATININE 0.88 mg/dl (0.60-1.20); GLUCOSE 89 mg/dl (70-99); POTASSIUM 3.9 mmol/L (3.5-5.1); SODIUM 139 mmol/L (136-145); TRIGLYCERIDES 79 mg/dl (0-150); VERY LOW DENSITY LIPOPROT CALC 16 mg/dl
[2017-03-16 12:51] LABS: HDL CHOLESTEROL 61 mg/dl; LDL CHOLESTEROL CALCULATED 103 mg/dl
== END | disposition home or self-care (01) ==
LOC: C.LABBFT 08:44
PROVIDERS: ATTEND Nurse Practitioner Family
DX: Z02.1 Encounter for pre-employment examination (principal); A41.9 Sepsis, unspecified organism; R94.6 Abnormal results of thyroid function studies